=== PATIENT | male | born 1960 | race Caucasian/White ===

== ENCOUNTER 2017-10-27 06:25 | Day surgery (SDC) | payer OTHER ==
[2017-10-25 09:19] VITALS: BMI 26.6
[~2017-10-27 06:25] MED LIST: LACTATED RINGERS 1,000 ML IV SCH; LIDOCAINE 1% 20 ML VIAL (10MG/ML) FOR IV START INTRADERMA PRN; Pre Op ABX Message 1 EACH MISC MISCELLANE ONE
[2017-10-27 06:45] VITALS: TEMP 97.4
[2017-10-27] MEDS ORDERED: PROPOFOL 10 MG/ML 20 ML VIAL IV ONE (07:25)
[2017-10-27] MEDS ORDERED: MIDAZOLAM 2 MG/2 ML VIAL ONE (07:25)
[2017-10-27] MEDS ORDERED: fentaNYL (PF) 50 MCG/ML 2 ML AMP ONE (07:25)
[2017-10-27] MEDS ORDERED: LIDOCAINE 1% INJ 10MG/ML (20 ML MDV) ONE (07:25)
[2017-10-27 08:06] VITALS: BP 127/82; PULSE 72; RESP 18
[2017-10-27 08:42] LABS: HGB 17.1 gm/dL (13.0-17.5); MCH 28.5 pg (25.0-35.0); MCHC 34.1 g/dL (31.0-37.0); MCV 83.6 fL (80.0-100.0); Mean Platelet Volume 6.8; Platelet Count 223 k/uL (150-450); RBC 5.99 m/uL (4.30-5.90); RDW 13.2 % (11.5-15.5); WBC 12.6 k/uL (3.8-10.6)
[2017-10-27 09:16] LABS: Eosinophils # (M) 0.13 k/uL (0-0.7); Lymphocytes # (M) 6.55 k/uL (1.0-4.8); Monocytes # (M) 0.38 k/uL (0-1.0); Neutrophils # (M) 5.54 k/uL (1.3-7.7); Neutrophils % (M) 44 %; Nucleated Red Blood Cells 0 /100 WBC (0-0); Poikilocytosis (M) Present; Total Cells Counted 100
--- NOTE | 2017-10-27 09:24 | OP ---
OPERATIVE REPORT DATE OF PROCEDURE: October 27, 2017 PREOP DIAGNOSIS: Leukocytosis. POSTOP DIAGNOSIS: Leukocytosis. ANESTHESIA: Local with IV systemic sedation. DETAILS: Utilizing sterile technique, the skin overlying the right iliac crest was prepared with Betadine and alcohol. After adequate sterile draping, local anesthesia with 1% lidocaine and IV systemic sedation, a size 11 4 inch Jamshidi needle was utilized to access the periosteum with ease. A total of 14 mL of aspirate and 2 cm bone core biopsies were obtained. The patient tolerated the procedure very well. There was no immediate procedure related complications. TOTAL BLOOD LOSS: Less than 1 mL. Results pending. MMODL / IJN: [id number] /
== END 2017-10-27 08:25 | disposition home or self-care (01) ==
LOC: OR 06:25
PROVIDERS: ATTEND Internal Medicine Hematology & Oncology
DX: C85.10 Unspecified B-cell lymphoma, unspecified site (principal); Z80.52 Family history of malignant neoplasm of bladder; E78.5 Hyperlipidemia, unspecified; I25.10 Atherosclerotic heart disease of native coronary artery without angina pectoris; I10 Essential (primary) hypertension; K21.9 Gastro-esophageal reflux disease without esophagitis; Z87.891 Personal history of nicotine dependence; Z79.82 Long term (current) use of aspirin; Z79.899 Other long term (current) drug therapy; Z88.5 Allergy status to narcotic agent
CPT/HCPCS: 38222; 85025; J2250; J2001; J3010; J2704